=== PATIENT | female | born 1985 | race Asian ===

== ENCOUNTER 2017-03-16 18:45 | Emergency (ER) | payer OTHER ==
[~2017-03-16] VITALS: Ht 162.6 cm; Wt 58.6 kg
[2017-03-16 18:53] VITALS: BP 127/85; TEMP 99.5
[2017-03-16] MEDS ORDERED: OSCAL 500 TAB500 MG PO (18:56)
[2017-03-16] MEDS ORDERED: MULTI VITAMINS1 TAB PO (18:56)
[2017-03-16] MEDS ORDERED: DOXYCYCLINE 10100 MG PO (21:03)
[2017-03-16 21:12] VITALS: PULSE 62
== END 2017-03-16 21:13 | disposition home or self-care (01) ==
LOC: COL.ER 18:45
DX: S71.152A Open bite, left thigh, initial encounter (principal); S61.451A Open bite of right hand, initial encounter; W54.0XXA Bitten by dog, initial encounter; Y92.009 Unspecified place in unspecified non-institutional (private) residence as the place of occurrence of the external cause; Z88.0 Allergy status to penicillin